=== PATIENT | female | born 1950 | race Two or more races ===

== ENCOUNTER 2017-08-31 11:23 | Emergency (ER) | payer OTHER ==
[~2017-08-31] VITALS: Ht 162.6 cm; Wt 61.2 kg
[~2017-08-31 11:23] MED LIST: CEFDINIR300 MG PO; CIPRO500 MG PO; DORYX100 M1 PO; ENBREL50 MG/M1; ULTRACET PO; XARELTO15 MG PO; XARELTO20 MG PO
== END 2017-08-31 15:45 | disposition home or self-care (01) ==
LOC: ER 11:23
DX: R07.89 Other chest pain (principal)

== ENCOUNTER 2017-09-02 09:26 | Emergency (ER) | payer OTHER ==
[~2017-09-02] VITALS: Ht 162.6 cm; Wt 61.7 kg
== END 2017-09-02 10:48 | disposition home or self-care (01) ==
LOC: ER 09:26
DX: M54.89 Other dorsalgia (principal)